=== PATIENT | female | born 1940 | race African-American/Black ===

== ENCOUNTER 2017-04-10 06:26 | Inpatient (IN) | payer OTHER ==
[2017-04-09 11:37] VITALS: BMI 28.5
[2017-04-10] MEDS ORDERED: ROPIVACAINE HCL 0.5% 30ML VIAL ONE (07:36)
[2017-04-10] MEDS ORDERED: LIDOCAINE HCL 1%, 10 MG/ML (20ML VIAL) ONE (07:36)
[2017-04-10] MEDS ORDERED: MIDAZOLAM HCL 2 MG/2 ML SINGLE DOSE VIAL ONE ×2 (07:37)
[2017-04-10] MEDS ORDERED: PROPOFOL 20 ML ONE ×2 (07:55)
[2017-04-10] MEDS ORDERED: ROCURONIUM BROMIDE 50 MG/5 ML VIAL ONE (07:55)
[2017-04-10] MEDS ORDERED: DEXAMETHASONE SOD PHOSPHATE/PF 10 MG/ML SDV ONE (08:19)
[2017-04-10] MEDS ORDERED: DEXAMETHASONE SOD PHOSPHATE 4 MG/1 ML VIAL ONE (09:01)
[2017-04-10] MEDS ORDERED: ceFAZolin SODIUM 1 GM VIAL ONE ×2 (09:01→15:49)
[2017-04-10] MEDS ORDERED: ONDANSETRON 4 MG/2 ML VIAL ONE (09:01)
[2017-04-10] MEDS ORDERED: ceFAZolin SODIUM 1 GM VIAL IVPB ONE (09:02)
[2017-04-10] MEDS ORDERED: SODIUM CHLORIDE 0.9% P/F 10 ML VIAL IJ ONE ×2 (09:15→09:42)
[2017-04-10] MEDS ORDERED: GENTAMICIN SO4 80 MG/2 ML VIAL ONE (09:15)
[2017-04-10] MEDS ORDERED: GENTAMICIN SO4 80 MG/2 ML VIAL IVPB ONE (09:40)
[2017-04-10] MEDS ORDERED: BACITRACIN 50,000 UNITS VIAL TP ONE (09:40)
[2017-04-10] MEDS ORDERED: VANCOMYCIN 1,000 MG VIAL (RESTRICTED TO ID ONLY) ONE (09:42)
--- NOTE | 2017-04-10 09:46 | OP ---
Operative Note - Note: Operative Date: 04/10/17 Pre-Operative Diagnosis: L breast angiosarcoma Operation: L total mastectomy Surgeon: Yojana Wells Assistant Professor Of English: Claus Hancock Specimens Removed: L breast Estimated Blood Loss (mls): 50 Operative Report Dictated: Yes
[2017-04-10] MEDS ORDERED: VANCOMYCIN 1 GRAM (PRE-DOCKED) 1,000 MG/250 ML BAG IVPB ONE (09:55)
--- NOTE | 2017-04-10 10:24 | OP ---
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 POSTOPERATIVE DIAGNOSIS: Left breast angiosarcoma of the breast. PROCEDURE: Left total mastectomy. SURGEON: Yojana Wells MD CROWN ATTACHER: Claus Hancock MD ANESTHESIA: General and paravertebral block. ESTIMATED BLOOD LOSS: 50 mL DRAINS: None. COMPLICATIONS: None. DISPOSITION: Stable. INDICATIONS: Patient had a left breast lumpectomy and adjuvant radiation, who presented with a palpable mass at the lumpectomy site in the lower inner left breast. The needle biopsy showed an angiosarcoma. She had metastatic workup that was negative. My recommendation was a total mastectomy given the size of the mass was encompassing behind the left nipple areolar complex measuring 6 cm x 6 cm. The procedure was discussed with her. She met with Dr. Hancock to discuss plastic surgery options. PROCEDURE IN DETAIL: Patient was brought to [facility], taken into the operating room. After a paravertebral block and induction of general anesthesia, IV antibiotics were given and both breasts were prepped and draped in the usual sterile fashion. Ellipse of skin was taken to include the nipple areolar on the left breast sharply with the 10 blade to include the entire mass behind the nipple areolar complex. Superior inferomedial lateral flaps were raised and the breast was reflected off the pectoralis muscle, tagged with a stitch at the lateral edge and sent as a left mastectomy. Hemostasis was with electrocautery. She tolerated the procedure well and was left with Dr. Hancock to finish the reconstruction part of the procedure. YOJANA WELLS M.D. [id number]
[2017-04-10] MEDS ORDERED: HYDROmorphone HCL CARPU-JECT 1 MG/1 ML DISP.SYRIN IVPUSH PRN (10:41)
[2017-04-10] MEDS ORDERED: ONDANSETRON 4 MG/2 ML VIAL IVPUSH PRN (10:41)
[2017-04-10] MEDS ORDERED: oxyCODONE HCL 5 MG TABLET PO PRN (10:41)
[2017-04-10] MEDS ORDERED: KETOROLAC TROMETHAMINE 30 MG/1 ML VIAL ONE (10:44)
[2017-04-10] MEDS ORDERED: LACTATED RINGERS SOLUTION 1,000 ML IV SCH ×2 (10:45→11:15)
[2017-04-10] MEDS ORDERED: NEOSTIGMINE METHYLSULFATE 0.5 MG/ML - 10 ML MDV ONE (10:46)
[2017-04-10] MEDS ORDERED: GLYCOPYRROLATE 0.2 MG/1 ML VIAL ONE (10:47)
[2017-04-10] MEDS ORDERED: ONDANSETRON 4 MG/2 ML VIAL IVPB PRN (11:14)
--- NOTE | 2017-04-10 11:21 | OP ---
Operative Note - Note: Operative Date: 04/10/17 Pre-Operative Diagnosis: acquired absence of left breast Operation: left breast reconstruction with tissue customer engagement specialist and alloderm Findings: above Implants: natrelle [id number] tissue customer engagement specialist Post-Operative Diagnosis: Same as Pre-op Surgeon: Claus Hancock Anesthesia: General Drains & Tubes with Location: JORGE L x 2 left breast
--- NOTE | 2017-04-10 12:30 | OP ---
DATE OF OPERATION: 04/10/2017 TITLE OF PROCEDURE: Left-sided breast reconstruction using tissue lawn mower operator and acellular dermal matrix, SPY intraoperative angiography. ATTENDING SURGEON: Claus Camacho MD GREEN INSPECTOR: There were no assistants. Procedure was performed in combination with a left-sided mastectomy performed by Dr. Yojana Wells. That portion of the procedure will be dictated separately by Dr. Wells. DESCRIPTION OF PROCEDURE: The patient was marked in the holding area, awake and aware of incisions, resulting scars, in collaboration with Dr. Wells. It was determined that the mastectomy will not require removal of an amount of skin that cannot be closed primarily, and therefore, the earlier consideration of latissimus dorsi flap is for now obviated. The patient understands this, also understands that as long as a second stage procedure will be required for removal of the tissue lawn mower operator, reduction of contralateral right side can be deferred until that point. She also understands this point. Patient was brought to the operating room and placed in a supine position, prepped and draped. Time-out was called. Patient, procedure, incision sites were verified. She was given a gram of Ancef preoperatively. Mastectomy was performed by Dr. Yojana Wells. That portion of the procedure will be dictated separately by Dr. Wells. After completion of this, gloves were changed, new instruments were used, and a subpectoral dissection was then performed from lateral to medial. The pectoralis major muscle was divided on its inferior medial fibers, and the wound was copiously irrigated with triple antibiotic solution. The triple antibiotic solution included a gram of vancomycin, 80 mg of gentamicin, 50,000 units of bacitracin, and a liter of saline. Hemostasis was meticulously achieved. With new gloves, the acellular dermal matrix was then brought into the field, and AlloDerm contour perforated thick sheet was used. It was secured to the borders of the mastectomy wound defect. Please note that the markings were made 2 cm inferior to the existing [place] inframammary fold in order to compensate for a non-reconstructive contra lateral breast. The AlloDerm was oriented with the rough dermal side on the superficial surface. It was secured with a running locking 2-0 PDS suture medially, inferiorly, and laterally. At this point, the tissue lawn mower operator was brought onto the field. It was rinsed in sterile saline. It was evacuated of all air, oriented properly, placed into the pocked using a one-touch technique and new sterile gloves. The suture tabs were affixed to the chest wall with 2-0 PDS suture. Superior free edge border of the AlloDerm was then secured to the inferior free edge border of the pectoralis major muscle with a running 2-0 PDS suture. Size 10 flat JORGE L drains were brought up through the lateral stab wound incisions, secured with 2-0 silk drain sutures. Hemostasis was once again finally assured. Wound was irrigated once again with triple antibiotic solution. The skin was excised of its free edges SPY angiography was then performed intraoperatively to assess the perfusion of the skin. This was found to be excellent with no qualitative or quantitative deficits. Closure was then performed in three layers. The deep breast capsular tissue was closed with a running locking 3-0 Monocryl suture, the dermis was closed with a running locking buried deep dermal 3-0 Monocryl suture, and the skin was then finally approximated with a running subcuticular 3-0 Monocryl suture. Steri-Strips were placed lengthwise along the wound. The drains were placed to bulb suction. Dressings of 4x4 gauze, ABD gauze, paper tape, and a surgical bra were applied. Patient was awoken from anesthesia having tolerated the procedure well, transferred to recovery without complications. CLAUS CAMACHO M.D. [id number]
[2017-04-10] MEDS ORDERED: CEFAZOLIN 1 GM/D5W 50 ML IVPB SCH (15:00)
[2017-04-10] MEDS: morphine CARPU-JECT 2 MG/1 ML DISP.SYRIN IM PRN (15:25)
[2017-04-10] MEDS ORDERED: DEXTROSE 5%-WATER - 50 ML IVPB ONE (15:49)
[2017-04-10] MEDS: CEFAZOLIN 1 GM in DEXTROSE 5%-WATER - 50 ML IVPB SCH ×2 (15:57→21:15)
[2017-04-10] MEDS: HEPARIN NA (PORCINE) 5,000 UNITS/ML 1ML VIAL SQ SCH (21:14)
[2017-04-10] MEDS: ATENOLOL 25 MG TABLET (FP) PO SCH (21:15)
[2017-04-10] MEDS ORDERED: LATANOPROST 0.005% OPHTH SOLN 2.5ML BOTTLE OU SCH (22:00)
[2017-04-11] MEDS ORDERED: ceFAZolin SODIUM 1 GM VIAL ONE (02:34)
[2017-04-11] MEDS ORDERED: DEXTROSE 5%-WATER - 50 ML IVPB ONE (02:35)
[2017-04-11] MEDS: CEFAZOLIN 1 GM in DEXTROSE 5%-WATER - 50 ML IVPB SCH (02:37)
--- NOTE | 2017-04-11 08:14 | PN ---
Progress Note (short form) - Note Progress Note: no complications VSS, Afebrile No hematoma JORGE L thin and functioning OK for discharge
--- NOTE | 2017-04-11 08:19 | DS ---
Physical Examination Vital Signs: Vital Signs Temperature 98.2 F 04/11/17 06:00 Pulse Rate 55 L 04/11/17 06:00 Respiratory Rate 20 04/11/17 06:00 Blood Pressure 111/52 04/11/17 06:00 O2 Sat by Pulse Oximetry (%) 99 04/10/17 13:50 Constitutional: Yes: Well Nourished Eyes: Yes: WNL HENT: Yes: WNL Neck: Yes: WNL Cardiovascular: Yes: WNL Respiratory: Yes: WNL Gastrointestinal: Yes: WNL ...Rectal Exam: Yes: WNL Renal/: Yes: WNL Breast(s): Yes: WNL, Other Musculoskeletal: Yes: WNL Extremities: Yes: WNL Integumentary: Yes: WNL Wound/Incision: Yes: Clean/Dry Discharge Summary Reason For Visit: LEFT BREAST ANGIOSARCOMA Condition: Good - Instructions Diet, Activity, Other Instructions: REg diet, use incentive spirometer, keep all dressings on and dry, teach JORGE L care and log, ambulate frequently, call for f/u Disposition: HOME - Home Medications Comprehensive Discharge Medication List: Ambulatory Orders Atenolol [Tenormin -] 25 mg PO BID 04/09/17 Cholecalciferol (Vitamin D3) [Vitamin D3] 2,000 unit PO DAILY 04/09/17 Furosemide 20 mg PO DAILY 04/09/17 Latanoprost 0.005% Eye Drops [Xalatan 0.005% Eye Drops -] 1 drop OU HS 04/09/17 Potassium Chloride [Klor-Con M20] 20 meq PO ASDIR 04/09/17 Cefadroxil 500 mg PO BID 7 Days 04/11/17 Oxycodone HCl/Acetaminophen [Percocet 5-325 mg Tablet] 1 - 2 tab PO Q4H #20 tablet MDD 6 04/11/17
[2017-04-11] MEDS: morphine CARPU-JECT 2 MG/1 ML DISP.SYRIN IM PRN (09:17)
[2017-04-11] MEDS: ATENOLOL 25 MG TABLET (FP) PO SCH (09:22)
[2017-04-11] MEDS: HEPARIN NA (PORCINE) 5,000 UNITS/ML 1ML VIAL SQ SCH (09:24)
[2017-04-11] MEDS ORDERED: CHOLECALCIFEROL (VITAMIN D3) 1,000 UNIT TABLET (FP) PO SCH (10:00)
[2017-04-11 14:50] VITALS: BP 120/56; PULSE 64; TEMP 98.5
--- NOTE | 2017-04-11 17:05 | PN ---
Progress Note (short form) - Note Progress Note: Anesthesia postop note 76 y/o F s/p GA and left paravertebral block for left mastectomy, tissue risk control product liability director, right breast reduction POD#1, vss aaox3, some pain on the right side, no anesthesia complications.
--- NOTE | 2017-04-16 13:11 | PATH ---
Surgical Pathology Report Patient Name: ARTIE ANDREW [facility]. Rec. #: [id number] /Age/Gender: 1940 (Age: 76) / F Account: [id number] Location: [address] [place] [address]/[facility] Taken: 04/10/2017 Received: 04/10/2017 Reported: 04/16/2017 Physicians: Sudhir Nelson Specimen(s) Received LEFT BREAST, MASTECTOMY Clinical History Angiosarcoma -left Final Diagnosis BREAST, LEFT, MASTECTOMY: HIGH GRADE SARCOMA, CONSISTENT WITH EPITHELIOID ANGIOSARCOMA WITH NECROSIS, INVOLVING BREAST PARENCHYMA (LOWER INNER QUADRANT), SUBAREOLAR/NIPPLE TISSUE AND OVERLYING BREAST SKIN (SEE COMMENT). TUMOR SIZE: 6.0 CM (GROSS MEASUREMENT). SURGICAL RESECTION MARGINS ARE NEGATIVE FOR SARCOMA; CLOSEST RESECTION MARGIN (ANTERIOR SOFT TISSUE) 1.0 CM AWAY FROM TUMOR. FOCAL DUCTAL CARCINOMA IN SITU (DCIS), INTERMEDIATE NUCLEAR GRADE, CRIBRIFORM AND MICROPAPILLARY TYPES, PRESENT ON 1 SLIDE IN THE LOWER INNER QUADRANT, WITH THE GREATEST EXTENT ON ONE SLIDE OF 1.0 CM. SURGICAL RESECTION MARGINS ARE NEGATIVE FOR DCIS (MORE THAN 1.0 CM AWAY FROM DCIS). SURROUNDING BREAST TISSUE: FIBROCYSTIC CHANGE WITH DUCT DILATATION; EXTENSIVE STROMAL FIBROSIS. PATHOLOGIC STAGING (ANGIOSARCOMA, DCIS): REFER TO CHECKLIST BELOW. RECEPTOR STATUS (DCIS): REFER TO CHECKLIST BELOW. Comment: The sections show involvement of the breast parenchyma (LIQ), subareolar/nipple tissue and overlying breast skin by high-grade neoplasm comprised of sheets and clusters of large epithelioid neoplastic cells with prominent nucleoli and variable amount of amphophilic cytoplasm focally forming irregular vascular spaces filled with red blood cells. Red cell extravasation is present. Frequent mitosis and apoptotic bodies are present. Necrosis is present. Immunohistochemical stains performed at [place], [place] ([id number]) on block #2 and interpreted at [facility] show the tumor cells are positive for CD31 and CD34 immunostains and are negative for Ae1/Ae3 keratin; these results are supportive of angiosarcoma. Also refer to prior biopsy ([id number]). Comments Sarcoma Case Summary (based on AJCC 7th edition): Tumor Site Specify (if known): left breast Tumor Size Greatest dimension: 6.0 cm Extent of Tumor _x_ Tumor involves breast parenchyma, subareolar/nipple tissue and breast skin Histologic Type (World Health Organization [WHO] classification of soft tissue tumors) _x_ Angiosarcoma Mitotic Rate: >20 /10(HPF) Necrosis (macroscopic or microscopic) _x_ Present Extent: 35-40% Histologic Grade ([employer] [facility] Sarcoma Group [FNCLCC]) _x_ Grade 3 Margins (sarcoma) _x_ Margins negative for sarcoma Distance of sarcoma from closest margin: 1.0 cm Specify margin: anterior soft tissue Lymph-Vascular Invasion _x_ Not applicable (angiosarcoma) Pathologic Staging (sarcoma, pTNM) Primary Tumor (pT): pT2a (tumor more than 5 cm in greatest dimension, superficial tumor) Regional Lymph Nodes (pN): pNX (no nodes submitted or found) Distant Metastasis (pM): Not applicable Pre-resection Treatment _x_ No therapy Treatment Effect _x_ Not applicable Additional Pathologic Findings: _x_ DCIS, low nuclear grade, cribriform and micropapillary types DCIS extent: DCIS is present on 1 slide in the LIQ with the greatest extent of 1 slide of 1.0 cm Resections margins: negative for DCIS (>1 cm away) Ancillary Studies (DCIS): Results of Estrogen Receptor (ER) and Progesterone Receptor (MI) studies performed on block #5 at [facility] are as follows: ER (clone [id number] mouse monoclonal antibody by [employer]): ~80% nuclear staining with strong intensity (Positive). MI (clone16 mouse monoclonal antibody by [employer]): ~5% nuclear staining with moderate to weak intensity (Positive). Pathologic staging (DCIS): pTis(DCIS) pNX Positive and negative controls (internal if applicable) show appropriate results. Formalin fixation and cold ischemic times are within current ASCO/CAP recommendations for ER, MI and Her2 testing. Electronically Signed Samuel Moss M.D. Gross Description Received in formalin, labeled "left mastectomy" is a 663 gram, 17.0 x 14.8 x 5.5 cm. left mastectomy specimen with a suture marking the lateral edge of the specimen, per the surgeon. The anterior surface displays a 14.0 x 7.5 cm denton, elliptical portion of skin with a 1.5 cm diameter nipple. The areola displays a 4.7 x 4.0 cm raised subepidermal lesion abutting the nipple at the inferior-medial aspect. The deep margin is inked black and the anterior soft tissue margin is inked blue. The specimen is serially sectioned from medial to lateral. Sectioning reveals a 6.0 x 4.5 x 4.0 cm red-brown, well circumscribed, indurated mass abutting the skin in the lower inner quadrant (LIQ), involving the nipple. The mass is at 1.0 cm from the closest anterior soft tissue margin and 2 cm from the closest deep margin. There is firm fibrous tissue surrounding the mass. The remaining breast parenchyma displays multiple foci of dense white fibrous tissue. Customer Service And Sales Consultant sections are submitted in 21 cassettes as follows: 1-serially sectioned nipple; 2-subareolar shave; 3-6-mass; 7-mass with surrounding fibrous tissue; 8-9-mass with skin; 10-mass with anterior soft tissue margin; 74-18-wrqbxfzcfx LIQ; 13-14-upper inner quadrant; 15-16-upper outer quadrant; 17-18-the lower outer quadrant; 19-additional skin; 20-additional anterior soft tissue margin; 21-deep margin. Time to fixation: <1h Total formalin fixation time: ~7h 04/10/201704/10/2017
== END 2017-04-11 17:05 | disposition home or self-care (01) | DRG 583 ==
LOC: JSAMEDAYSX 06:26 → EDSTATUS 08:00 → J6S 13:40
PROVIDERS: ADMIT Surgery; ATTEND Surgery
PROC: 4A1GXSH Monitoring of Skin and Breast Vascular Perfusion using Indocyanine Green Dye, External Approach (ICD-10-PCS; 2017-04-10)
PROC: 0HTU0ZZ Resection of Left Breast, Open Approach (ICD-10-PCS; principal; 2017-04-10 08:00)
PROC: 0HHU0NZ Insertion of Tissue Expander into Left Breast, Open Approach (ICD-10-PCS; 2017-04-10 08:00)
DX: C50.312 Malignant neoplasm of lower-inner quadrant of left female breast (principal); I10 Essential (primary) hypertension; M81.0 Age-related osteoporosis without current pathological fracture; Z80.3 Family history of malignant neoplasm of breast; Z80.42 Family history of malignant neoplasm of prostate
CPT/HCPCS: 88307-TC; 94010; 94760; J1644

== ENCOUNTER 2017-07-23 05:53 | Day surgery (SDC) | payer OTHER ==
[2017-07-10 11:44] VITALS: BMI 27.3
[2017-07-23] MEDS ORDERED: fentaNYL CITRATE 250 MCG/5 ML VIAL ONE (07:12)
[2017-07-23] MEDS ORDERED: ceFAZolin SODIUM 1 GM VIAL ONE ×2 (07:12→07:17)
[2017-07-23] MEDS ORDERED: DEXAMETHASONE SOD PHOSPHATE 4 MG/1 ML VIAL ONE (07:12)
[2017-07-23] MEDS ORDERED: PROPOFOL 20 ML ONE ×2 (07:12)
[2017-07-23] MEDS ORDERED: SUCCINYLCHOLINE CHLORIDE 200 MG/10 ML VIAL ONE (07:12)
[2017-07-23] MEDS ORDERED: LIDOCAINE HCL/PF 2% SDV 5ML VIAL ONE ×2 (07:12→12:20)
[2017-07-23] MEDS ORDERED: ROCURONIUM BROMIDE 50 MG/5 ML VIAL ONE (07:12)
[2017-07-23] MEDS ORDERED: ONDANSETRON 4 MG/2 ML VIAL ONE (07:12)
[2017-07-23] MEDS ORDERED: GENTAMICIN SO4 80 MG/2 ML VIAL ONE (07:18)
[2017-07-23] MEDS ORDERED: ACETAMINOPHEN INJECTION 100 ML IVPB ONE (07:50)
--- NOTE | 2017-07-23 09:31 | EKG ---
Test Reason : Blood Pressure : / mmHG Vent. Rate : 053 BPM Atrial Rate : 053 BPM P-R Int : 154 ms QRS Dur : 086 ms QT Int : 420 ms P-R-T Axes : 024 024 002 degrees QTc Int : 394 ms SINUS BRADYCARDIA POSSIBLE LEFT VENTRICULAR HYPERTROPHY NO PREVIOUS ECGS AVAILABLE Confirmed by LUCIA ZHOU MD ([id number]) on 07/23/2017 9:31:06 AM Referred By: Claus Hancock Confirmed By:LUCIA ZHOU MD
[2017-07-23] MEDS ORDERED: oxyCODONE HCL 5 MG TABLET PO PRN ×2 (12:40)
[2017-07-23] MEDS ORDERED: ONDANSETRON 4 MG/2 ML VIAL IVPB PRN (12:40)
--- NOTE | 2017-07-23 12:44 | OP ---
Operative Note - Note: Operative Date: 07/23/17 Pre-Operative Diagnosis: left breast cancer Operation: left exchange of tissue treasury consultant for breast implant with right breast reduction Implants: allergan [id number] filled to 530 Post-Operative Diagnosis: Same as Pre-op Surgeon: Claus Hancock Anesthesia: General Specimens Removed: left capsule, right skin and breast tissue Estimated Blood Loss (mls): 100 Drains & Tubes with Location: JORGE L right breast Operative Report Dictated: Yes
[2017-07-23] MEDS ORDERED: LACTATED RINGERS SOLUTION 1,000 ML IV SCH ×2 (12:45→13:00)
[2017-07-23] MEDS ORDERED: ONDANSETRON 4 MG/2 ML VIAL IVPUSH PRN (12:47)
[2017-07-23] MEDS ORDERED: PROMETHAZINE HCL 25 MG/1 ML VIAL IVPUSH PRN (12:47)
[2017-07-23 13:10] VITALS: TEMP 97.8
[2017-07-23 16:59] VITALS: BP 113/74; PULSE 83
--- NOTE | 2017-07-24 14:57 | OP ---
DATE OF OPERATION: 07/23/2017 PROCEDURE: 1. Left reconstructed breast, removal of existing breast prosthesis. 2. Left reconstructed breast periprosthetic capsulectomy. 3. Left reconstructed breast delayed placement of permanent breast prosthesis. 4. Right breast balancing breast reduction. ATTENDING SURGEON: Claus Hancock MD SALES MANAGEMENT TRAINEE: There were no assistants. ANESTHESIA: General endotracheal anesthesia. PREOPERATIVE DIAGNOSIS: Left-sided angiosarcoma to the breast, status post left mastectomy with tissue salvage inspector breast reconstruction, now having completed full tissue expansion and adjuvant therapy, right breast asymmetry to left reconstructed breast. The patient was marked in the holding area. The right nipple was sided at 21 cm from the sternal notch preoperatively. An inverted T Lau type pattern reduction is planned. The left side is marked for capsulectomy and implant exchange. She is awake and aware of all incisions and resulting scars. A full discussion is had regarding the risks, benefits, and alternatives to the procedure as well as its limitations. She has chosen saline implant which has a textured surface. 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 She is aware of this, understands, and agrees to proceed. PROCEDURE: The patient was brought to the operating room. She was given 1 g of Ancef preoperatively. Sequential compression stockings and MIKHAIL hose are applied. She is prepped and draped in standard surgical fashion. Timeout is called. Patient, procedure, side and sites are verified. Attention is first directed toward the left side, where incision is made over the existing mastectomy scar, carried down to the level of the acellular dermal matrix. A stairstep incision is made through the acellular dermal matrix 2 cm cephalad to the skin incision. Through this capsular incision, the tissue salvage inspector prosthesis is removed. A posterior wall capsulectomy is then performed, with the capsule given for specimen. Capsulotomy is performed superiorly to allow for more uniform superior skin pole. Hemostasis meticulously achieved. The wound is copiously irrigated with triple-antibiotic solution. Triple antibiotics are 1 L of normal saline, 50,000 units of bacitracin, 1 g of Ancef, and 80 mg of gentamicin. At this point, the implant is brought onto the field. It is a [employer] style [id number] saline textured surface implant. The implant is oriented, is evacuated of all air. With new gloves, it is placed into the pocket, oriented properly. It is filled in situ using a 3-way closed filling system to top of its fill range of 530 mL of saline. At this point, the capsule was then closed anteriorly with a running locking 3-0 Monocryl suture. The dermis is then closed with a series of interrupted buried deep dermal 3-0 Monocryl suture followed by a running subcuticular 3-0 Monocryl suture. Attention is then directed toward the contralateral right side, where a breast reduction is planned. An inferior pedicle technique is used. A 42-mm Emerging Threats cutter is used to lobito the nipple-areola. This is traced. A 10-cm inferiorly-based pedicle is then patterned and de-epithelialized with the breast under tourniquet. Tourniquet is then removed. Skin flaps are elevated medially, laterally, and superiorly. The chest wall is dissected to the level of the clavicle and the tissue between the resection pattern and the pedicle is then excised. Hemostasis is meticulously achieved. The pedicle is then pexied superomedially for the appropriate shape of the breast using 2-0 Vicryl suture. A size 10 flat JORGE L drain is brought out through the lateral extent of the incision. The nipple-areola is inset into the keyhole pattern, is pink and viable, with good dermal bleeding. The drain is secured with a 2-0 silk drain suture laterally. The inverted T point is closed with a half-buried mattress 2-0 nylon suture. Skin is tailor tacked. The patient is brought to a seated upright position, where symmetry between the left reconstructed breast and the right breast reduction are found to be excellent in both size and shape. Closure is then performed of the vertical and horizontal incisions with a series of interrupted buried deep dermal 3-0 Monocryl suture followed by a running subcuticular 3-0 Monocryl suture. Skin of the nipple-areola is then inset with a series of interrupted buried deep dermal 4-0 Monocryl suture followed by a running subcuticular 4-0 Monocryl suture. The drain is placed to bulb suction. All incisions are dressed with Steri-Strips, 4 x 4 gauze, surgical bra. The patient is awoken from anesthesia, having tolerated procedure well, transferred to recovery without complication. Please note that the resection weight on the patient's right side is 400 g. Sudhir VALDOVINOS/[id number]
--- NOTE | 2017-07-25 14:46 | PATH ---
Surgical Pathology Report Patient Name: ARTIE ANDREW Med. Rec. #: [id number] /Age/Gender: 1940 (Age: 76) / F Account: [id number] Location: [facility] Taken: 07/23/2017 Received: 07/23/2017 Reported: 07/25/2017 Physicians: Claus Hancock Specimen(s) Received A: LEFT BREAST CAPSULE B: LEFT BREAST TISSUE TECHNOLOGY ARCHITECT C: RIGHT BREAST SKIN AND TISSUE Clinical History Asymmetry of reconstructed breast Final Diagnosis A. SOFT TISSUE, LEFT BREAST, EXCISION: FIBROMEMBRANOUS TISSUE WITH CHRONIC INFLAMMATION AND FOREIGN BODY REACTION CONSISTENT WITH BREAST IMPLANT CAPSULE, WITH ADHERENT ADIPOSE TISSUE AND SKELETAL MUSCLE. B. VENEER CUTTER, LEFT BREAST, REMOVAL: VENEER CUTTER CONSISTENT WITH TISSUE TECHNOLOGY ARCHITECT (GROSS ONLY). C. RIGHT BREAST, MAMMOPLASTY: BENIGN BREAST TISSUE WITH FIBROCYSTIC CHANGES INCLUDING STROMAL FIBROSIS AND DUCTAL DILATATION, WITH ASSOCIATED CALCIFICATION. SKIN WITH SEBORRHEIC KERATOSIS. Electronically Signed Vasu Martinez M.D. Gross Description A. Received in formalin labeled "left breast capsule," is a 5.0 x 3.5 x 0.4 cm aggregate of multiple denton, firm portions of fibrous tissue, consistent with fibrous capsule. No discrete lesions are identified. Solar Field Installation Crew Member sections are submitted in one cassette. B. Received fresh labeled "left breast tissue director of accounting," is a 14.0 x 11.5 x 6.0 cm intact breast tissue director of accounting. No soft tissue is present. No sections are submitted, gross only. C. Received in formalin labeled "right breast skin and tissue," is a 447 g, 18.0 x 15.0 x 4.0 cm aggregate of multiple irregular, unoriented portions of fibroadipose tissue and denton skin. There are 2 brown pigmented skin lesions identified measuring 0.9 x 0.8 cm and 0.7 x 0.6 cm. Sectioning reveals multifocal white fibrous tissue. No definitive masses are identified. Solar Field Installation Crew Member sections are submitted in 6 cassettes as follows: 1-2-skin lesions; 1-4-yrnynucevoksnp skin and fibroadipose tissue. 07/24/201707/24/2017
== END 2017-07-23 16:45 | disposition home or self-care (01) ==
LOC: FASU 05:53
PROVIDERS: ATTEND Plastic Surgery
PROC: 0HBT0ZZ Excision of Right Breast, Open Approach (ICD-10-PCS; 2017-07-23)
PROC: 0HPU0JZ Removal of Synthetic Substitute from Left Breast, Open Approach (ICD-10-PCS; principal; 2017-07-23 09:16)
PROC: 0HRU0JZ Replacement of Left Breast with Synthetic Substitute, Open Approach (ICD-10-PCS; 2017-07-23 09:16)
DX: C50.112 Malignant neoplasm of central portion of left female breast (principal); N62 Hypertrophy of breast; Z90.12 Acquired absence of left breast and nipple
CPT/HCPCS: 88300-TC; 88304-TC; 88305-TC; 93005